=== PATIENT | female | born 2000 | race Caucasian/White ===

== ENCOUNTER 2019-10-12 15:28 | Emergency (ER) | payer OTHER, SELFPAY ==
--- NOTE | 2019-10-12 15:36 | ED_ITS ---
HPI - Chest Pain General Chief Complaint: Chest Pain Stated Complaint: Chest pains, trouble breathing Time Seen by Provider: 10/12/19 15:36 History of Present Illness HPI narrative: 19-year-old otherwise healthy woman presents with left upper outer chest wall pain. She woke up with that this morning it seems to be worsening over the course of the day. It is worse with deep breathing and with moving. She notes that she had active evening with a bit of alcohol consumption and lots of dancing in [place] last night. She has never had similar pain. she is on no regular oral medications has an implantable control device. She has had no nausea vomiting diarrhea abdominal pain diaphoresis or dyspnea associated with any of this. She simply looking for reassurance and wants to make sure that she is taking excellent care of her overall health Related Data Home Medications Medication Instructions Recorded Confirmed etonogestrel [Nexplanon] #1 11/29/16 07/01/19 Previous Rx's Medication Instructions Recorded sumatriptan succinate 50 mg tablet 50 mg PO ONCE #20 tab 05/23/18 Allergies Allergy/AdvReac Type Severity Reaction Status Date / Time No Known Drug Allergies Allergy Verified 07/01/19 12:29 Review of Systems Review of Systems ROS Unobtainable: All systems reviewed & are unremarkable except as noted in HPI and below Patient History Medical History Closed head injury (Resolved) PERITONSILLAR ABSCESS (Resolved) Social History Smoking Status: Current every day smoker Smoking Status: Current every day smoker Exam Narrative Exam Narrative: General: Healthy appearing, in no acute distress. Able to give a complete and coherent history. Well-nourished well-developed HEENT: Moist mucous membranes, normal sclera with reactive pupils, Neck: No JVD, supple Chest: Tenderness with palpation over the left pectoralis muscle. With manipulation of the left shoulder pain can be reproduced. Deep breathing also reproduces pain. No rashes associated along the chest wall to suggest shingles. Respiratory: Lungs are clear to auscultation, no wheezing no rales no rhonchi. Full and symmetrical air movement Cardiac: Regular rate and rhythm no murmurs no bruits Abdomen: Soft nontender good bowel tones, no flank pain Skin: Warm and dry, no rashes Neurologic: Grossly neurologically intact with no obvious asymmetries or abnormalities Extremities: No trauma, well perfused Psych: Cooperative, appropriate insight and affect Initial Vital Signs Initial Vital Signs: Vital Signs Temperature 98.4 F 10/12/19 15:44 Pulse Rate 86 10/12/19 15:44 Respiratory Rate 16 10/12/19 15:44 Blood Pressure 120/83 10/12/19 15:44 Pulse Oximetry 100 10/12/19 15:44 Course Course Course Narrative: 19-year-old woman presents with left upper chest wall almost shoulder pain that appears to be had paralysis if strain. EKG is unremarkable. Chest x-ray is performed. Given the description and physical exam I do not feel that additional blood work is warranted at this time in reviewed might recommendations with Sarah. Questions are answers. I think she is safe for home discharge at this time Orders Ordered: ED Orders 10/12/19 15:55 XR chest 1V Stat Discontinued Medications Acetaminophen (Tylenol) 325 mg PO NOW ONE Stop: 10/12/19 16:13 Ibuprofen (Advil) 400 mg PO NOW ONE Stop: 10/12/19 16:13 Vital Signs Vital signs: Vital Signs - 8 hr 10/12/19 15:44 10/12/19 16:00 Temperature 98.4 F Pulse Rate 86 71 Respiratory Rate 16 17 Blood Pressure 120/83 Blood Pressure [Right Arm] 105/72 Pulse Oximetry 100 99 MDM - Chest Pain Differential Diagnosis Differential diagnosis: Likely fracture of rib, pneumothorax, stable angina, unstable angina pectoris, atypical chest pain, st elevation myocardial infarction, costochondritis and chest pain Medical Records Data Attestation: I reviewed the patient's medical records. Imaging Data Chest x-ray: Attestation: I personally reviewed and interpreted this imaging study as follows: My impression: Normal chest x-ray with normal cardiac silhouette no evidence of spontaneous pneumothorax or fracture. Radiologist's impression: IMPRESSION: 1. No acute cardiopulmonary disease. Dictated by: Ja Jennings M.D. on 10/12/2019 at 15:13 ECG Data Attestation: I personally reviewed and interpreted this ECG as follows: Interpretation: Normal sinus rhythm at a rate of 64. Normal intervals and normal axis No acute ischemia Discharge Plan Departure Patient Disposition: Home Clinical Impression: Pectoralis muscle strain Qualifiers: Encounter type: initial encounter Qualified Code(s): S29.011A - Strain of muscle and tendon of front wall of thorax, initial encounter Instructions: DI for Atypical Chest Pain Activity Restrictions/Additional Instructions: Thank you for coming in today. I believe that you have strained the pectoralis muscle (the one under your breast that goes out into your armpit. I am not seeing any evidence to suggest this is a heart attack, a collapsed lung, a blood clot in her lungs or any other life-threatening findings. A suspect that he probably had more of a workout the knee realized last night while dancing. If it continues to bother you, using 2 [id number]-[id number] ibuprofen (400 mg total) and 1 Tylenol together will help with the pain. It may actually bother you more tomorrow. It is common for injuries to her worse 2 days after the initial problem I wish you the best Prescriptions: No Action etonogestrel [Nexplanon] 68 MG implant Qty: 1 RF: 0 sumatriptan succinate 50 mg tablet 50 mg PO ONCE Qty: 20 RF: 0 Referrals: Analisa Sethi MD [Primary Care Provider] -
[2019-10-12 15:44] VITALS: BP 120/83; PULSE 86; RESP 16; TEMP 36.9; O2SAT 100; BMI 26.6
--- NOTE | 2019-10-12 15:55 | DI.RAD.S_ITS ---
PROCEDURE: XR CHEST 1V INDICATIONS: left chest pain TECHNIQUE: One view of the chest was acquired. COMPARISON: [facility], , CHEST 1 VIEW, 12/28/2015, 9:01. FINDINGS: Surgical changes and devices: None. Lungs and pleura: Lungs are clear. No pleural effusions or pneumothorax. Mediastinum: Mediastinal contours appear normal. Heart size is normal. Bones and chest wall: No suspicious bony lesions. Overlying soft tissues appear unremarkable. IMPRESSION: 1. No acute cardiopulmonary disease. Dictated by: Ja Jennings M.D. on 10/12/2019 at 15:13 Approved by: Ja Jennings M.D. on 10/12/2019 at 15:14
[2019-10-12 16:00] VITALS: BP 105/72; PULSE 71; RESP 17; O2SAT 99
[2019-10-12] MEDS: ACETAMINOPHEN 325 MG TABLET PO (16:30)
[2019-10-12] MEDS: IBUPROFEN 400 MG TABLET PO (16:30)
[2019-10-12 16:34] VITALS: BP 105/72; PULSE 81; RESP 19; O2SAT 99
== END 2019-10-12 16:36 | disposition home or self-care (01) ==
PROVIDERS: Emergency Provider Emergency Medicine; PCP Family Medicine
DX: S29.011A Strain of muscle and tendon of front wall of thorax, initial encounter (principal)
CPT/HCPCS: 71045; 93005; 93010; 93041; 99283; 99284

== ENCOUNTER 2019-11-02 11:59 | Emergency (ER) | payer OTHER, SELFPAY ==
[2019-11-02 12:00] VITALS: BP 131/84; PULSE 96; RESP 14; TEMP 37; O2SAT 98
--- NOTE | 2019-11-02 12:58 | ED.URI ---
HPI - URI/Sore Throat <CUCO BurkettP - Last Filed: 11/02/19 13:36> General Chief Complaint: Upper Respiratory Symptoms Stated Complaint: POSS FLU Time Seen by Provider: 11/02/19 12:14 Source: patient Mode of arrival: Ambulatory Limitations: no limitations History of Present Illness HPI Narrative: This is a 19-year-old female, smoker, who presents to ED with 3 day duration of sore throat, sinus pressure, intermittent nausea and vomiting, pressure-like headache, body aches and joint pain, bloody nasal discharge last night. Patient reports family member was sick with 24 hour duration of stomach bug with diarrhea but they are better now. Patient has not received influenza vaccination this season. Patient denies history of asthma, immune suppressed. Patient has been self treated with liquid Tylenol, NyQuil, Emergency C, IBUprofen and has been trying to hydrate herself with water. LMP 3 days ago. Related Data Home Medications Medication Instructions Recorded Confirmed etonogestrel [Nexplanon] #1 11/29/16 07/01/19 Previous Rx's Medication Instructions Recorded sumatriptan succinate 50 mg tablet 50 mg PO ONCE #20 tab 05/23/18 ondansetron 4 mg PO BID-TID PRN #7 tab 11/02/19 Allergies Allergy/AdvReac Type Severity Reaction Status Date / Time No Known Drug Allergies Allergy Verified 07/01/19 12:29 Review of Systems <Brodie Taylor [facility] - Last Filed: 11/02/19 13:36> Review of Systems Narrative: General: CHP a HEENT: See HPI Respiratory: Denies dyspnea, cough, wheezing, hemoptysis, sputum. Cardiovascular: Denies chest pain, palpitations, orthopnea, edema. Gastrointestinal: Reports intermittent nausea and vomiting. Denies abdominal pain, diarrhea, constipation, melena. : Denies dysuria, frequency, incontinence, hematuria, urinary retention. Musculoskeletal: Reports myalgia and arthralgia. Skin: Denies rash, skin lesions, or other. Neurologic: Denies weakness, headache, numbness, change in speech, confusion, seizures, incoordination. Psychiatric: No concerning psychosocial issues. 12-point review of systems is negative except for those stated above. Patient History <CUCO BurkettP - Last Filed: 11/02/19 13:36> Medical History Closed head injury (Resolved) PERITONSILLAR ABSCESS (Resolved) Social History Smoking Status: Current every day smoker Smoking Status: Current every day smoker alcohol intake frequency: 0-2 drinks per day Alcohol type: beer Substance Use Type: marijuana Exam <AISSATOU Burkett - Last Filed: 11/02/19 13:36> Narrative Exam Narrative: GEN: Alert, oriented x 3, well appearing and nourished, and in no acute distress. Head: Normal cephalic, atraumatic. No scalp or temporal tenderness, palpable mass or rash. EYES: Pupils are equal, round, and reactive to light and accommodation. Extraocular muscles are intact bilaterally. There is no subconjunctival hemorrhage, exudate and sclera non-icteric. ENT: Right auditory canal obscured with cerumen. Left AC clear. Left tympanic membranes clear. Hearing grossly intact. Nose without bleeding. Small amount of purulent left nostril with congestion and erythematous turbinates. No deviation. Facial sinuses mild discomfort to palpate. Mucous membrane moist, no mucosal lesion. Throat without erythema, tonsillar hypertrophy or exudate. Uvula in midline, airway patent. Neck: Trachea in midline. No JVD, non-tender without lymphadenopathy. No masses or thyroid megaly. Supple, non-tender and no meningeal signs. CARDIAC: Normal regular rate and rhythm without murmurs, gallops, or rubs. No chest wall tenderness. No peripheral edema, cyanosis or pallor. Capillary refill is less than 2 seconds. RESPIRATORY: Lungs are clear to auscultate bilaterally. No cough, wheezes, rales, or rhonchi. No stridor, respiratory distress, increase work of breathing, or accessary muscle used. ABD: Abdomen soft, nontender and non-distended. No guarding or rebound tenderness to palpate. Bowel sounds are normal in all 4 quadrants. There is no palpable masses or organomegaly. EXT: Full painless ROM of all extremities with no loss of sensation, strength, effusion or edema. SKIN: Warm, dry, normal color for patient. No erythema, lesions or rash over visible areas. BACK: Nontender without deformity or crepitance. No flank tenderness. NEUROLOGICAL: Alert and oriented to place, time and person. Sensation and motor function intact bilaterally. No facial droops, dysphasia. PSYCHIATRIC: Good judgement and reason, without hallucinations, abnormal affect or abnormal behaviors during the examination. Initial Vital Signs Initial Vital Signs: Vital Signs Temperature 98.6 F 11/02/19 12:00 Pulse Rate 96 H 11/02/19 12:00 Respiratory Rate 14 11/02/19 12:00 Blood Pressure 131/84 11/02/19 12:00 Pulse Oximetry 98 11/02/19 12:00 <Yuli Aguero DO - Last Filed: 11/02/19 17:49> Initial Vital Signs Initial Vital Signs: Vital Signs Temperature 98.6 F 11/02/19 12:00 Pulse Rate 96 H 11/02/19 12:00 Respiratory Rate 14 11/02/19 12:00 Blood Pressure 131/84 11/02/19 12:00 Pulse Oximetry 98 11/02/19 12:00 Scores <AISSATOU Burkett - Last Filed: 11/02/19 13:36> GCS Chely coma scale eye opening: Spontaneous Che[place] coma scale verbal response: Orientated Che[place] coma scale motor response: Obey commands Chely coma scale total score: 15 Course <AISSATOU Burkett - Last Filed: 11/02/19 13:36> Orders Ordered: ED Orders 11/02/19 12:07 Flu test [Influenza A & B (PCR)] Stat Vital Signs Vital signs: Vital Signs - 8 hr 11/02/19 12:00 11/02/19 13:14 Temperature 98.6 F Pulse Rate 96 H 93 H Respiratory Rate 14 14 Blood Pressure 131/84 Blood Pressure [Left Arm] 116/80 Pulse Oximetry 98 100 <Yuli Aguero DO - Last Filed: 11/02/19 17:49> Orders Ordered: ED Orders 11/02/19 12:07 Flu test [Influenza A & B (PCR)] Stat Vital Signs Vital signs: Vital Signs - 8 hr 11/02/19 12:00 11/02/19 13:14 Temperature 98.6 F Pulse Rate 96 H 93 H Respiratory Rate 14 14 Blood Pressure 131/84 Blood Pressure [Left Arm] 116/80 Pulse Oximetry 98 100 MDM - URI/Sore Throat <AISSATOU Burkett - Last Filed: 11/02/19 13:36> Differential Diagnosis Differential diagnosis: Likely upper respiratory infection, sinusitis, influenza and pharyngitis Medical Records Attestation: I reviewed the patient's medical records. Lab Data Attestation: I reviewed the patient's lab results. Labs: Lab Results 11/02/19 Range/Units 12:07 Influenza A (RT-PCR) Flu a negative (NEGATIVE) Influenza B (RT-PCR) Flu b negative (NEGATIVE) Point of Care Testing Rapid Strep A Negative MDM Narrative Medical decision making narrative: This is a 19-year-old female who presents to ED with 3 day duration of subjective fever, sore throat, sinus pressure and headache, myalgia, arthralgia, and intermittent nausea and vomiting. Patient's strep throat and flu swabs were negative. Lung sounds are clear to auscultate bilaterally without increased work of breathing. Patient was satting 100% in room air. Nasal turbinates was injected and congested with small amount of purulent discharge. Patient declined Tylenol, Motrin, Zofran while in ED since patient has labs in medical insurance. Return precautions were discussed with the patient and patient advised to use supportive care with increasing hydration, [id number] Tylenol and Motrin for discomfort and fever, nasal rinses, [id number] Flonase, Sudafed, Mucinex for her symptoms since this is likely from viral illness and respiratory infection. Work off note for 2 days were provided. Zofran prescription has been provided with good Rx coupon. Patient verbalized understanding and agrees with the treatment plan. <Yuli Aguero DO - Last Filed: 11/02/19 17:49> Lab Data Labs: Lab Results 11/02/19 Range/Units 12:07 Influenza A (RT-PCR) Flu a negative (NEGATIVE) Influenza B (RT-PCR) Flu b negative (NEGATIVE) Point of Care Testing Rapid Strep A Negative Discharge Plan Departure Patient Disposition: Home Clinical Impression: Viral illness, Vomiting Upper respiratory infection Qualifiers: URI type: unspecified URI Qualified Code(s): J06.9 - Acute upper respiratory infection, unspecified Discharge Date/Time: 11/02/19 13:23 Activity Restrictions/Additional Instructions: You have been diagnosed with [upper respiratory infection likely viral illness. Today's strep throat was negative, influenza a and B was negative.]. What to do: *Take your medications as directed. Please use [id number] Flonase, Sudafed (you may request this from a pharmacist for full strength), Mucinex, Tylenol/Motrin for your symptoms. Flonase and Sudafed would help with nasal congestion. Tylenol and Motrin for fever and discomfort. Mucinex will help in out the mucus. Please increase hydration. Zofran as needed for nausea. *Follow up with your primary care provider in 2-3 days, call for an appointment. Let them know you were seen in the ED and that we asked you to be seen in follow up. *Return to ED if you have any new, worsening, or concerning symptoms, such as [chest pain, breathing difficulty, unable to tolerate fluids, duration of you're illness lasts longer than expected or any acute concerns]. Prescriptions: New ondansetron 4 mg tablet,disintegrating 4 mg PO BID-TID PRN (Reason: nausea and vomiting) Qty: 7 RF: 0 No Action etonogestrel [Nexplanon] 68 MG implant Qty: 1 RF: 0 sumatriptan succinate 50 mg tablet 50 mg PO ONCE Qty: 20 RF: 0 Referrals: Analisa Sethi MD [Primary Care Provider] - Stand Alone Forms: Work Release Note
[2019-11-02 13:01] LABS: Influenza A - CEPHEID Flu A NEGATIVE (NEGATIVE); Influenza B - CEPHEID Flu B NEGATIVE (NEGATIVE)
[2019-11-02 13:14] VITALS: BP 116/80; PULSE 93; RESP 14; O2SAT 100
== END 2019-11-02 13:23 | disposition home or self-care (01) ==
PROVIDERS: Emergency Medicine; Emergency Provider Nurse Practitioner Family; PCP Family Medicine
DX: J06.9 Acute upper respiratory infection, unspecified (principal); R11.2 Nausea with vomiting, unspecified; F17.200 Nicotine dependence, unspecified, uncomplicated
CPT/HCPCS: 87502; 87880; 99282

== ENCOUNTER 2020-09-07 20:39 | Emergency (ER) | payer OTHER, SELFPAY ==
[2020-09-07 20:40] VITALS: BP 141/82; PULSE 93; RESP 16; TEMP 37.2; O2SAT 100; BMI 26.6
[2020-09-07 21:11] LABS: Bacteria Urine None Seen
[2020-09-07 21:22] LABS: RBC Urine 1-5/HPF (0-5/HPF)
[2020-09-07 21:23] LABS: Culture Indicated Urine Cult Not Indicated; Squamous Epithelial Cell Urine 5-10 /HPF (0-5/HPF); WBC Urine 5-10/HPF (0-5/HPF)
[2020-09-07] MEDS: NITROFURANTOIN ER 100 MG CAPSULE PO (21:39)
[2020-09-07] MEDS: PHENAZOPYRIDINE 100 MG TABLET PO (21:39)
--- NOTE | 2020-09-07 21:40 | ED_ITS ---
HPI - Female Genitourinary General Chief complaint: Urogenital-Female Stated complaint: painful urination Time Seen by Provider: 09/07/20 21:27 Source: patient Mode of arrival: Ambulatory History of Present Illness HPI Narrative: Patient complains of urinary frequency and dysuria for the past 2 days. LMP just finished. Denies denies any vaginal discharge or complaints. No back pain no fever chills. No nausea vomiting. Complaint: dysuria and UTI Related Data Home Medications Medication Instructions Recorded Confirmed etonogestrel [Nexplanon] #1 11/29/16 07/01/19 Previous Rx's Medication Instructions Recorded ondansetron 4 mg PO BID-TID PRN #7 tab 11/02/19 nitrofurantoin monohyd/m-cryst 100 mg PO Q12H 5 Days #10 cap 09/07/20 [Macrobid] phenazopyridine [Pyridium] 200 mg PO TID PRN #6 tab 09/07/20 Allergies Allergy/AdvReac Type Severity Reaction Status Date / Time No Known Drug Allergies Allergy Verified 09/07/20 20:40 Review of Systems Review of Systems Narrative: GENERAL: Denies chills, fatigue, malaise, fever, sweats. HEENT: Denies sinus pain, ear pain, sore throat, difficulty swallowing RESPIRATORY: Denies dyspnea, cough CARDIOVASCULAR: Denies chest pain, palpitations, edema, GASTROINTESTINAL: Denies nausea, vomiting, abdominal pain, diarrhea, constipation, melena. : Complains dysuria, frequency, denies hematuria MUSCULOSKELETAL: denies muscle or bony pain SKIN: Denies rash, skin lesions NEUROLOGIC: Denies weakness, headache, numbness, change in speech, confusion PSYCHIATRIC: No SI or HI or hallucinations ROS Unobtainable: All systems reviewed & are unremarkable except as noted in HPI and below Patient History Medical History Closed head injury (Resolved) PERITONSILLAR ABSCESS (Resolved) alcohol intake frequency: 0-2 drinks per day Alcohol type: beer Substance Use Type: marijuana Exam Narrative Exam Narrative: GENERAL: patient appears stated age. Well-nourished, well- developed patient, in no distress, not toxic not dyspneic HEAD: Normocephalic. CARDIOVASCULAR: Regular rate and rhythm without murmurs, gallops, or rubs. RESPIRATORY: Clear to auscultation. Breath sounds equal bilaterally. No wheezes, rales, or rhonchi. GASTROINTESTINAL: Abdomen soft, non-tender, nondistended. EXTREMITIES: No gross deformities. BACK: Nontender without deformity or crepitance. No flank tenderness. NEURO: AOx4. SKIN: Warm and dry PSYCH: Not anxious, is cooperative Initial Vital Signs Initial Vital Signs: Vital Signs Temperature 99.0 F 09/07/20 20:40 Pulse Rate 93 H 09/07/20 20:40 Respiratory Rate 16 09/07/20 20:40 Blood Pressure 141/82 H 09/07/20 20:40 Pulse Oximetry 100 09/07/20 20:40 Course Orders Ordered: ED Orders 09/07/20 21:00 Urine Microscopic Stat Discontinued Medications Nitrofurantoin Macrocrystals (Macrobid 100 Mg Capsule) 100 mg PO NOW ONE Stop: 09/07/20 21:33 Last Admin: 09/07/20 21:39 Dose: 100 mg Documented by: JIMMIE Phenazopyridine HCl (Pyridium) 100 mg PO NOW ONE Stop: 09/07/20 21:33 Last Admin: 09/07/20 21:39 Dose: 100 mg Documented by: JIMMIE Reevaluation(s) Reevaluation #1: Reviewed results with patient. She agrees with treatment plan. Will treat urine clinically Time: 21:45 Vital Signs Vital signs: Vital Signs - 8 hr 09/07/20 20:40 Temperature 99.0 F Pulse Rate 93 H Respiratory Rate 16 Blood Pressure 141/82 H Pulse Oximetry 100 MDM - Female Genitourinary Lab Data Attestation: I reviewed the patient's lab results. Labs: Lab Results 09/07/20 Range/Units 21:00 Urine RBC 1-5/hpf (0-5/HPF) Urine WBC 5-10/hpf H (0-5/HPF) Ur Squamous Epith Cells 5-10 /hpf H (0-5/HPF) Urine Bacteria None seen (None) Ur Culture Indicated? Cult not indicated Point of Care Testing Test Results Negative Urine Dip Bedside Urine Glucose Negative Bedside Urine Bilirubin - Negative Bedside Urine Ketone - Negative Urine Specific [place] 1.015 Bedside Urine Occult Blood ++ Bedside Urine pH 6 Bedside Urine Protein - Negative Bedside Urine Urobilinogen - Negative Bedside Urine Nitrite - Negative Bedside Urine Leukocytes + 70 Esterase MDM Narrative Medical decision making narrative: Labs reviewed. No imaging indicated. Patient not toxic. Will treat UTI clinically. Discharge Plan Departure Patient Disposition: Home Clinical Impression: Urinary tract infection Qualifiers: Urinary tract infection type: site unspecified Hematuria presence: with hematuria Qualified Code(s): N39.0 - Urinary tract infection, site not specified Discharge Date/Time: 09/07/20 21:46 Instructions: DI for Urinary Tract Infection (UTI) Activity Restrictions/Additional Instructions: Return if worse or if any questions or concerns. See family doctor this week for recheck. Continue medications prescribed to you tomorrow. Keep well hydrated Prescriptions: New nitrofurantoin monohyd/m-cryst [Macrobid] 100 mg capsule 100 mg PO Q12H 5 Days Qty: 10 RF: 0 phenazopyridine [Pyridium] 100 mg tablet 200 mg PO TID PRN (Reason: pain) Qty: 6 RF: 0 No Action etonogestrel [Nexplanon] 68 MG implant Qty: 1 RF: 0 ondansetron 4 mg tablet,disintegrating 4 mg PO BID-TID PRN (Reason: nausea and vomiting) Qty: 7 RF: 0 Referrals: Analisa Sethi MD [Primary Care Provider] -
== END 2020-09-07 21:46 | disposition home or self-care (01) ==
PROVIDERS: Emergency Provider Emergency Medicine; PCP Family Medicine
DX: N39.0 Urinary tract infection, site not specified (principal)
CPT/HCPCS: 81003; 81015; 81025; 99283

== ENCOUNTER → 2020-09-29 09:23 | Outpatient (CLI) | payer OTHER, SELFPAY ==
[2020-09-29 10:14] LABS: COVID19 -Nasal RAPID Negative (Negative)
== END ==
PROVIDERS: PCP Family Medicine; Visit Provider Internal Medicine
DX: Z03.818 Encounter for observation for suspected exposure to other biological agents ruled out (principal)
CPT/HCPCS: 87635

== ENCOUNTER → 2021-05-26 10:50 | Outpatient (CLI) | payer OTHER, SELFPAY | PROVIDERS: PCP Family Medicine; Visit Provider Physician Assistant | DX: B99.9 Unspecified infectious disease (principal) | CPT/HCPCS: 87070; 87077; 87147; 87186; 87205 ==

== ENCOUNTER 2021-10-20 08:48 | Emergency (ER) | payer OTHER, SELFPAY ==
[2021-10-20 09:05] VITALS: BP 125/75; PULSE 90; RESP 16; TEMP 37; O2SAT 98; BMI 26.1
--- NOTE | 2021-10-20 09:24 | ED.GENADULT ---
HPI - General Adult General Chief complaint: Upper Respiratory Symptoms Stated complaint: sinus infection Time Seen by Provider: 10/20/21 09:00 Source: patient Mode of arrival: Ambulatory History of Present Illness HPI narrative: Otherwise healthy 21-year-old woman with 24 hours of mild throat irritation and complaints of nasal drainage. She reports similar findings about 3 weeks ago that resolved spontaneously. She does not know of any seasonal allergies. She had tonsils removed a number of years ago for chronic infections. She is sent to the emergency room by her place of employment requesting prove negative COVID prior to returning to work given her symptoms. Related Data Home Medications Medication Instructions Recorded Confirmed etonogestrel 68 mg subdermal #1 11/29/16 05/26/21 implant (Nexplanon) Previous Rx's Medication Instructions Recorded ondansetron 4 mg disintegrating 4 mg PO BID-TID PRN #7 tab 11/02/19 tablet phenazopyridine 100 mg tablet 200 mg PO TID PRN #6 tab 09/07/20 (Pyridium) Allergies Allergy/AdvReac Type Severity Reaction Status Date / Time No Known Drug Allergies Allergy Verified 05/26/21 10:19 Review of Systems Review of Systems Narrative: Pertinent positive and negative findings as per HPI Remainder of review of systems is otherwise unremarkable for Constitutional: Fevers, chills, weakness CV: Chest pain, palpitations, Respiratory: Cough, wheeze, dyspnea GI: Nausea, vomiting, diarrhea, : Dysuria, hematuria, Patient History Medical History Closed head injury PERITONSILLAR ABSCESS Social History Smoking Status: Current every day smoker Smoking Status: Current every day smoker tobacco type: vaping alcohol intake frequency: 0-2 drinks per day Alcohol type: beer Substance Use Type: marijuana Exam Narrative Exam Narrative: General: Healthy appearing, in no acute distress. Able to give a complete and coherent history. Well-nourished well-developed HEENT: Moist mucous membranes, normal sclera with reactive pupils, slight circles under her eyes. Minor posterior pharyngeal cobblestoning, no significant pharyngeal erythema. No cervical adenopathy. Right tympanic membrane is completely occluded with cerumen. Respiratory: Lungs are clear to auscultation, no wheezing no rales no rhonchi. Full and symmetrical air movement Cardiac: Regular rate and rhythm no murmurs no bruits Abdomen: Soft, nontender, good bowel tones, no flank pain Skin: Warm and dry, no rashes Neurologic: Grossly neurologically intact with no obvious asymmetries or abnormalities Extremities: No trauma, well perfused Psych: Cooperative, appropriate insight and affect Initial Vital Signs Initial Vital Signs: Vital Signs Temperature 98.6 F 10/20/21 09:05 Pulse Rate 90 10/20/21 09:05 Respiratory Rate 16 10/20/21 09:05 Blood Pressure 125/75 10/20/21 09:05 Pulse Oximetry 98 10/20/21 09:05 Course Orders Ordered: ED Orders 10/20/21 09:11 COVID19 -Nasal swab/Pre-Proc Stat Vital Signs Vital signs: Vital Signs - 8 hr 10/20/21 09:05 Temperature 98.6 F Pulse Rate 90 Respiratory Rate 16 Blood Pressure 125/75 Pulse Oximetry 98 Medical Decision Making Lab Data Labs: Lab Results 10/20/21 Range/Units 09:11 SARS-CoV-2 (PCR) Negative (Negative) MDM Narrative Medical decision making narrative: 21-year-old woman, COVID negative, presents with intermittent episodes of scratchy and irritated posterior pharynx. Symptoms are most consistent with postnasal drip. She is familiar with use of a netti pot and I did suggest this or additional types of saline wash as most effective treatment for her symptoms at this time. She stated that she has used Nasonex in the past and did not find it all that helpful. Recommended cerumenex to help with the right the cerumen impaction. Questions are answered and she is safe for home discharge Discharge Plan Departure Patient Disposition: Home Clinical Impression: PND (post-nasal drip) Cerumen impaction Qualifiers: Laterality: right Qualified Code(s): H61.21 - Impacted cerumen, right ear Instructions: DI for Nasal Congestion Activity Restrictions/Additional Instructions: Thank you for coming in today You do not have COVID You do have some mild postnasal drip. Using the Netti pot or a nasal rinse syringe will do more to help reduce her symptoms than anything else. At this time, you do not need any antibiotics. You have quite a bit of wax buildup in your right ear. You can use Cerumenex drops in the right ear daily for a couple of days and then let water from the shower rinse out your ear. If it continues to be a problem, you can follow-up with your primary care physician. I wish you the best Prescriptions: No Action Adacel(Tdap Adolesn/Adult)(PF) 2 Lf-(2.5-5-3-5 mcg)-5Lf/0.5 mL suspension 0.5 ml IM ONCE Qty: 0.5 0RF etonogestrel [Nexplanon] 68 MG implant Qty: 1 0RF ondansetron 4 mg tablet,disintegrating 4 mg PO BID-TID PRN (Reason: nausea and vomiting) Qty: 7 0RF phenazopyridine [Pyridium] 100 mg tablet 200 mg PO TID PRN (Reason: pain) Qty: 6 0RF Referrals: Analisa Sethi MD [Primary Care Provider] -
[2021-10-20 09:28] LABS: COVID19 -Nasal RAPID Negative (Negative)
== END 2021-10-20 10:15 | disposition home or self-care (01) ==
PROVIDERS: Emergency Provider Emergency Medicine; PCP Family Medicine
DX: R09.82 Postnasal drip (principal); H61.21 Impacted cerumen, right ear; Z20.822 Contact with and (suspected) exposure to COVID-19
CPT/HCPCS: 87635; 99281; C9803

== ENCOUNTER → 2023-08-08 12:27 | Outpatient (CLI) | payer OTHER, SELFPAY ==
[2023-08-08 13:14] LABS: COVID-19 CEPHEID 4-PLEX PCR Negative (Negative); Influenza A - CEPHEID Flu A NEGATIVE (NEGATIVE); Influenza B - CEPHEID Flu B NEGATIVE (NEGATIVE); Respiratory Syncytial Virus Negative (Negative)
== END ==
PROVIDERS: PCP Family Medicine; Visit Provider Physician Assistant
DX: R05.1 Acute cough (principal)
CPT/HCPCS: 0241U